=== PATIENT | female | born 1995 | race Caucasian/White ===

== ENCOUNTER 2016-12-23 20:24 | Emergency (ER) | payer OTHER ==
[~2016-12-23] VITALS: Ht 157.5 cm; Wt 58.0 kg
[~2016-12-23 20:24] MED LIST: BENZ100 PO; MEDR4PAK3 PO; [UNRECOGNIZED DRUG - SUPPLY]
[2016-12-23 20:31] VITALS: BP 106/74; PULSE 96; RESP 18; TEMP 97.9; O2SAT 98
[2016-12-23] MEDS ORDERED: BIRTH CONTROL PO (21:02)
[2016-12-23] MEDS ORDERED: EXCETAB2 PO (21:02)
[2016-12-23] MEDS ORDERED: FLUT50SP EACH NARE (21:34)
[2016-12-23] MEDS ORDERED: AUGM875T PO (21:34)
--- NOTE | 2016-12-23 21:35 | PD ---
HPI Chief Complaint: Headache Time Seen by Provider: 20:40 Travel History International Travel<30 days: No Contact w/Intl Traveler<30days: No Traveled to known affect area: No History of Present Illness HPI Patient is a 21-year-old female who presents emergency for evaluation of ear pressure and head ache. She states she has had chronic headaches for over a year. She takes Excedrin and Flexeril for that. Today she has had ear pressure. She states when she bends over she feels pressure in her head. Denies any significant nasal congestion, fevers, dyspnea, shortness of breath, nausea, vomiting. Does report a history of asthma and has a cough associated with that at night. PFSH Past Medical History Asthma: Yes Autoimmune Disease: No Developmental Delay: No Diminished Hearing: No Gastrointestinal Disorders: Yes (IBS) Genitourinary: No Musculoskeletal: No Psychiatric: No Respiratory: Yes (asthma) Immunizations Current: Yes Tetanus Vaccination: Unknown Influenza Vaccination: Yes ?: Not Past Surgical History Other Surgery: Yes (DEVIATED SEPTUM) Social History Alcohol Use: No Tobacco Use: No Substance Use: No Allergies-Medications (Allergen,Severity, Reaction): Coded Allergies: Morphine (Verified Allergy, Severe, Rash, 12/23/16) Reported Meds & Prescriptions Reported Meds & Active Scripts Active Fluticasone Nasal [place] 50 Mcg/Act Naspr 100 Mcg EACH NARE BID 50 mcg/spray Augmentin (Amoxicillin-Clavulanate) 875-125 mg Tab 875 Mg PO BID 10 Days not for use in CrCl <30 ml/min. Reported [ Control] Unknown Dose PO DAILY Excedrin Extra Strength (Efannvt-Ffcqphrvlmozj-Xrdcpkgl) 250-250-65 Mg Tab 2 Tab PO DAILY PRN Review of Systems Except as stated in HPI: all other systems reviewed are Neg Eyes: No: Blurred Vision, Visual changes HENT: Positive: Headaches, Earache Cardiovascular: No: Chest Pain or Discomfort Respiratory: No: Shortness of Breath Gastrointestinal: No: Nausea, Vomiting, Abdominal Pain Musculoskeletal: No: Myalgias Neurologic: No: Dizziness, Syncope, Focal Abnormalities, Change in Mentation, Paresthesia, Sensory Disturbance Physical Exam Narrative GENERAL: Developed, well-nourished, alert female. Resting comfortably in no acute distress. SKIN: Warm and dry. HEAD: Atraumatic. Normocephalic. EYES: Pupils equal and round. No scleral icterus. No injection or drainage. ENT: No nasal bleeding or discharge. Mucous membranes pink and moist. Bilateral external ear canals and tympanic membranes are erythema, dullness or loss of landmarks. NECK: Trachea midline. No JVD. CARDIOVASCULAR: Regular rate and rhythm. No murmur appreciated. RESPIRATORY: No accessory muscle use. Clear to auscultation. Breath sounds equal bilaterally. GASTROINTESTINAL: Abdomen soft, non-tender, nondistended. Hepatic and splenic margins not palpable. MUSCULOSKELETAL: No obvious deformities. No clubbing. No cyanosis. No edema. NEUROLOGICAL: Awake and alert. No obvious cranial nerve deficits. Motor grossly within normal limits. Normal speech. PSYCHIATRIC: Appropriate mood and affect; insight and judgment normal. Data Data Last Documented VS Vital Signs Date Time Temp Pulse Resp B/P Pulse Ox O2 Delivery O2 Flow Rate FiO2 12/23/16 20:58 Room Air 12/23/16 20:31 97.9 96 18 106/[address] [facility] Medical Decision Making Medical Screen Exam Complete: Yes Emergency Medical Condition: Yes Interpretation(s) Vital Signs Date Time Temp Pulse Resp B/P Pulse Ox O2 Delivery O2 Flow Rate FiO2 12/23/16 20:58 Room Air 12/23/16 20:31 97.9 96 18 106/74 98 Differential Diagnosis Acute sinusitis versus otitis media versus effusion versus other Narrative Course Patient is a 21-year-old female presenting to emergency for evaluation of ear pressure that started last night or this morning. Patient also has a headache, she's had headaches for the last year. She is neurologically intact. Headache is not unlike headaches she is had in the past. Patient has been seen and evaluated by her primary doctor, she had a CAT scan done 2-3 months ago per her report. Patient's primary doctor has prescribed Flexeril for the headaches as well as recommending patient takes Excedrin. At this time patient will be treated for acute sinusitis. She is encouraged to follow-up with her primary doctor in 7-10 days. She is encouraged to return to emergency department for any new or worsening symptoms. Patient is stable for discharge. Diagnosis Primary Impression: Acute sinusitis Qualified Code: J01.90 - Acute sinusitis, recurrence not specified, unspecified location Referrals: Primary Care Physician 1 week Patient Instructions: General Instructions, Sinusitis (ED) Additional Instructions: Follow-up with your primary doctor Take medications as directed Return to emergency department for any new or worsening symptoms Obtain grgm-yih-qzwjtgc Sudafed or similar nasal decongestant and use as directed Med/Other Pt SpecificInfo: Prescription(s) given Scripts Fluticasone Nasal [place] 50 Mcg/Act [id number] Mcg EACH NARE BID #1 BOTTLE Ref 0 50 mcg/spray Prov:Karyn Oscar 12/23/16 Amoxicillin-Clavulanate (Augmentin)875-125 mg [id number] Mg PO BID 10 Days Ref 0 not for use in CrCl <30 ml/min. Prov:Karyn Oscar 12/23/16 Disposition: 01 DISCHARGE HOME Condition: Stable Karyn Oscar Dec 23, 2016 21:35
[2016-12-23 21:51] VITALS: BP 105/76
== END 2016-12-23 21:53 | disposition home or self-care (01) ==
LOC: PHEFT 20:24
DX: J01.90 Acute sinusitis, unspecified (principal)
CPT/HCPCS: 99283

== ENCOUNTER → 2017-06-02 | Day surgery (SDC) | payer OTHER ==
--- NOTE | 2017-06-01 08:41 | MH ---
cc: CATALINA LUJAN DATE OF ADMISSION 06/02/2017 DATE OF 1995 CHIEF COMPLAINT Sinusitis HISTORY This is a 21-year-old female with nasal obstruction, chronic sinusitis. She has had problems with nasal obstruction. She has had a previous sinus procedure and has a significant scar band obstructing the left side of the nose at the nasal septum and inferior turbinate. She has had chronic sinus disease, recurrent infections, and pressure with nasal obstruction. Plan is for revision, endoscopic sinusotomies, septoplasty and bilateral turbinate resection. PAST MEDICAL HISTORY Shows ALLERGIES TO MORPHINE. PHYSICAL EXAMINATION A Well-developed, well-nourished female in no apparent distress. HEAD, EYES, EARS, NOSE, AND THROAT: Normocephalic, atraumatic. Extraocular motions intact. External ear canals clear. Lips, oral mucosa and oropharynx show no lesion. The nasal exam shows a left septal spur was septal and turbinate scar band with obstruction. The patient shows narrowing at the sinus ostia. The lips, oral mucosa and oropharynx show no lesions. NECK: Shows no masses. CHEST: Clear to auscultation. HEART: Regular rate. ABDOMEN: Soft. EXTREMITIES: No lesion. NEUROLOGIC: Exam is nonfocal. ASSESSMENT A 21-year-old female with chronic sinusitis to undergo revision sinusotomies, removal of scar band, septoplasty, and turbinate resection. The risks and benefits discussed with the patient. The risks include, but are not limited to those of anesthesia, bleeding, unfavorable scarring, CSF leak, meningitis, brain abscess, double vision, vision loss, blindness anosmia, septal perforation, epistaxis. The patient states she understands, and accepts the risks of the procedure. MD INESSA Groves/IGOR /7:44 AM /8:40 AM
[~2017-06-02] VITALS: Ht 157.5 cm; Wt 56.9 kg
[~2017-06-02] MED LIST changes: +ACETAMINOPHEN 1000 MG/100 ML VIAL IV ONE; +ACETAMINOPHEN/HYDROcodone 325 MG/5 MG TAB PO PRN; +ALBUAER3 INH; +APREPITANT 40 MG CAP ONE; +ASPI1TAB93 PO; -BENZ100 PO; +CHLORHEXIDINE GLUCONATE 2 % 1 PACK (2 CLOTHS) TOPICAL PRN; +DO NOT ADM ANY ANTICOAGULANT DRUGS PRN; +EPINEPHrine HCL (1:1000) 30 MG/30 ML VIAL ONE; +INSULIN HUMAN REGULAR 1,000 UNITS/10 ML VIAL SQ PRN; +LACTATED RINGER'S 1000 ML IV PRN; +LEVO-33 PO; +LIDOCAINE 1%/EPINEPHrine 1:100,000 SOLN 20 ML VIAL ONE; -MEDR4PAK3 PO; +MEPERIDINE HCL 25 MG/ML VIAL IV PRN; +METOPROLOL TARTRATE 25 MG TAB PO PRN; +MIDAZOLAM HCL 2 MG/2 ML VIAL ONE; +NEOSTIGMINE 3 MG/3 ML SYR IV ONE; +ONDANSETRON HCL 4 MG/2 ML VIAL IV PUSH ONE; +ONDANSETRON HCL 4 MG/2 ML VIAL IV PUSH PRN; +POVIDONE IODINE 5% (ANTISEPSIS KIT) 4 APPLICATIONS EACH NARE PRN; +PROPOFOL 200 MG/20 ML AMP IV ONE; +SODIUM CHLORID 0.9% 500 ML IV PRN; -[UNRECOGNIZED DRUG - SUPPLY]; +fentaNYL CITRATE 250 MCG/5 ML AMP ONE
[2017-06-02 06:23] VITALS: BP 116/75; PULSE 72; RESP 20; TEMP 98.6; O2SAT 98
[2017-06-02 06:43] LABS: BASOPHIL % 0.4 % (0.0-2.0); EOSINOPHIL # 0.6 TH/MM3 (0-0.4); EOSINOPHIL % 7.4 % (0.0-4.0); HEMATOCRIT 36.9 % (35.0-46.0); HEMO FLAGS DIFF FINAL; LYMPH % 46.3 % (9.0-44.0); LYMPHOCYTE # 3.8 TH/MM3 (1.0-4.8); MEAN CELL VOLUME 83.8 FL (80.0-100.0); MEAN CORPUSCULAR HEMOGLOBIN 27.9 PG (27.0-34.0); MEAN CORPUSCULAR HGB CONC 33.3 % (32.0-36.0); MONO % 8.8 % (0.0-8.0); NEUT % 37.1 % (16.0-70.0); PLATELET COUNT 255 TH/MM3 (150-450); RED CELL DISTRIBUTION WIDTH 14.4 % (11.6-17.2); WHITE BLOOD COUNT 8.1 TH/MM3 (4.0-11.0)
--- NOTE | 2017-06-02 07:57 | MP ---
cc: CATALINA LUJAN M.D. DATE OF SURGERY June 02, 2017 INDICATION This is a 21-year-old female with chronic sinusitis, nasal obstruction. She has had previous sinus surgery. She has recurrent sinus disease. She has a left septal scar band with obstruction and residual turbinate hypertrophy. She has failed medical therapy. She is to undergo sinusotomies, septoplasty and bilateral submucosal inferior turbinates. PREOPERATIVE DIAGNOSES Chronic sinusitis. Nasal obstruction. Scar band on the left. POSTOPERATIVE DIAGNOSES Chronic sinusitis. Nasal obstruction. Scar band on the left. PROCEDURE Septoplasty, bilateral endoscopic frontal sinusotomy, bilateral endoscopic anterior ethmoid sinusotomy, bilateral endoscopic maxillary sinusotomy, bilateral endoscopic sphenoid sinusotomy, submucosal resection of inferior turbinates. SUMMARY The patient was brought to the operating room, placed in supine position, successfully placed under general anesthesia and prepared in the usual fashion for this procedure. The nose was first topically decongested and treated with Xylocaine with epinephrine 1:100,000. The frontal recess was approached first on the right side and then the left side with a balloon sinuplasty. The frontal sinus ostia was identified and successfully opened under endoscopic guidance on the right and under endoscopic guidance on the left. The ethmoid sinus was treated anteriorly at the ethmoid bulla under endoscopic guidance, first on the right and then on the left side with an opening in the anterior chamber and completing endoscopic ethmoidectomy. The maxillary sinus ostia was identified on the left then on the right under endoscopic guidance. The areas had been scarred. Under balloon sinuplasty with the 0-degree scope, the maxillary sinus was identified and the maxillary sinus was opened bilaterally. No removal of soft tissue. The sphenoid sinus was approached anteriorly from a transnasal route first on the right, then on the left. The sphenoid sinus was identified and with the 0-degrees scope sphenoid sinusotomy was completed with dilation. The left septal band was incised and this released the septum on the left side. The septum was set more to the midline completing septoplasty. Nasal port packing was placed. The right inferior turbinate was incised inferiorly, submucous resection completed. There area was cauterized and closed. The left inferior turbinate was incised inferiorly, submucous resection was completed. The area was cauterized and closed. The patient tolerated the procedure well. She was suctioned and awakened, extubated, taken to Recovery in stable condition. MD INESSA Groves/MISTI /7:23 AM /7:41 AM
[2017-06-02 09:45] VITALS: BP 112/70; PULSE 86; RESP 16; TEMP 97.8; O2SAT 99
== END | disposition home or self-care (01) ==
LOC: HSDC 05:32
PROVIDERS: ATTEND Specialist
DX: J32.9 Chronic sinusitis, unspecified (principal); J34.89 Other specified disorders of nose and nasal sinuses; J34.3 Hypertrophy of nasal turbinates
CPT/HCPCS: 00160; 30140; 31254; 31256; 31276; 31287; 85025; J0131; J0171; J2250; J2405; J2710; J3010; J7120; J8501

== ENCOUNTER 2017-07-08 17:23 | Emergency (ER) | payer OTHER ==
[~2017-07-08] VITALS: Ht 157.5 cm; Wt 53.0 kg
[~2017-07-08 17:23] MED LIST changes: -ACETAMINOPHEN 1000 MG/100 ML VIAL IV ONE; -ACETAMINOPHEN/HYDROcodone 325 MG/5 MG TAB PO PRN; -APREPITANT 40 MG CAP ONE; -CHLORHEXIDINE GLUCONATE 2 % 1 PACK (2 CLOTHS) TOPICAL PRN; -DO NOT ADM ANY ANTICOAGULANT DRUGS PRN; -EPINEPHrine HCL (1:1000) 30 MG/30 ML VIAL ONE; -INSULIN HUMAN REGULAR 1,000 UNITS/10 ML VIAL SQ PRN; -LACTATED RINGER'S 1000 ML IV PRN; -LIDOCAINE 1%/EPINEPHrine 1:100,000 SOLN 20 ML VIAL ONE; -MEPERIDINE HCL 25 MG/ML VIAL IV PRN; -METOPROLOL TARTRATE 25 MG TAB PO PRN; -MIDAZOLAM HCL 2 MG/2 ML VIAL ONE; -NEOSTIGMINE 3 MG/3 ML SYR IV ONE; -ONDANSETRON HCL 4 MG/2 ML VIAL IV PUSH ONE; -ONDANSETRON HCL 4 MG/2 ML VIAL IV PUSH PRN; -POVIDONE IODINE 5% (ANTISEPSIS KIT) 4 APPLICATIONS EACH NARE PRN; -PROPOFOL 200 MG/20 ML AMP IV ONE; -SODIUM CHLORID 0.9% 500 ML IV PRN; -fentaNYL CITRATE 250 MCG/5 ML AMP ONE
[2017-07-08 17:32] VITALS: BP 120/62; PULSE 67; RESP 16; TEMP 98.4; O2SAT 97
[2017-07-08] MEDS ORDERED: MINO50CA PO (18:03)
[2017-07-08] MEDS ORDERED: ZOFR4TAB PO ×2 (18:14→19:10)
--- NOTE | 2017-07-08 18:14 | PD ---
HPI . Epigastric pain and nausea Chief Complaint: Abdominal Pain Time Seen by Provider: 17:51 Travel History International Travel<30 days: No Contact w/Intl Traveler<30days: No Traveled to known affect area: No History of Present Illness HPI This patient presents with chief complaint of epigastric pain associated with nausea. Onset of symptoms was 5 days ago. There has been no vomiting and no diarrhea. She states that her symptoms started 2 days after she was placed on minocycline for acne. She currently rates her pain 6/10. PFSH Past Medical History Asthma: Yes Autoimmune Disease: No Cancer: No Cardiovascular Problems: No Developmental Delay: No Diabetes: No Diminished Hearing: No Endocrine: No Gastrointestinal Disorders: Yes (IBS) Genitourinary: No Hepatitis: No Immune Disorder: No Musculoskeletal: No Psychiatric: No Reproductive: No Respiratory: Yes (asthma) Immunizations Current: Yes Thyroid Disease: No ?: Not LMP: 07/07/17 Past Surgical History Abdominal Surgery: No AICD: No Cardiac Surgery: No Ear Surgery: No Endocrine Surgery: No Eye Surgery: No Genitourinary Surgery: No Gynecologic Surgery: No Joint Replacement: No Oral Surgery: Yes (DEVIATED SEPTAL REPAIR) Pacemaker: No Thoracic Surgery: No Other Surgery: Yes (DEVIATED SEPTUM) Social History Alcohol Use: No Tobacco Use: No Substance Use: No Allergies-Medications (Allergen,Severity, Reaction): Coded Allergies: morphine (Unverified Allergy, Severe, Rash, 07/08/17) Reported Meds & Prescriptions Reported Meds & Active Scripts Active Zofran (Ondansetron HCl) 4 Mg Tab 4 Mg PO Q6HR PRN Reported Levonorgestrel-Ethinyl Estradiol 0.1-0.02 Mg Tab 1 Tab PO DAILY Excedrin Extra Strength (Gttvxzh-Ygosbwrcdbuuq-Oquujbbq) 1 Tab Tab 2 Tab PO DAILY Proair Hfa 8.5 GM Inh (Albuterol Sulfate) 90 Mcg/Act Aer 2 Puff INH Q6H PRN 108 mcg/actuation Review of Systems Except as stated in HPI: all other systems reviewed are Neg General / Constitutional: No: Fever, Chills Gastrointestinal: Positive: Nausea, Abdominal Pain, No: Vomiting, Diarrhea Physical Exam Narrative GENERAL: Smiling and in no acute distress. SKIN: Warm and dry. HEAD: Atraumatic. Normocephalic. EYES: Pupils equal and round. Sclerae are anicteric. ENT: No nasal bleeding or discharge. Mucous membranes pink and moist. NECK: Trachea midline. Neck supple. CARDIOVASCULAR: Regular rate and rhythm. Heart sounds normal. RESPIRATORY: No accessory muscle use. Lungs clear with full air movement throughout. GASTROINTESTINAL: Abdomen soft. Mild epigastric tenderness with no guarding or rebound. Nondistended. MUSCULOSKELETAL: No obvious deformities. No edema. NEUROLOGICAL: Awake and alert. No obvious cranial nerve deficits. Motor grossly within normal limits. Normal speech. PSYCHIATRIC: Appropriate mood and affect; insight and judgment normal. Data Data Last Documented VS Vital Signs Date Time Temp Pulse Resp B/P (MAP) Pulse Ox O2 Delivery O2 Flow Rate FiO2 07/08/17 17:32 98.4 67 16 120/62 (81) 97 Orders Orders Ed Urine Pregnancytest Poc (07/08/17 17:56) Ondansetron Odt (Zofran Odt) (07/08/17 18:15) Al-Mag Hy-Si 40-40-4 Mg/Ml Liq (Mag-Al P (07/08/17 18:15) Lidocaine 2% Viscous (Xylocaine 2% Visco (07/08/17 18:15) MDM Medical Decision Making Medical Screen Exam Complete: Yes Emergency Medical Condition: Yes Differential Diagnosis Differential diagnosis of abdominal pain includes but is not limited to gastritis, pancreatitis, hepatitis, gastroenteritis, gallbladder disease, constipation, urinary retention, UTI, peptic ulcer disease, diverticulitis or appendicitis Narrative Course This patient presents with epigastric pain which is associated with starting minocycline for acne. She will be instructed to stop the medication. She has been treated in the emergency department with Zofran and a GI cocktail. I will give her a prescription for Zofran. She may take an aggl-gxz-zlycmcw antacid as needed for epigastric discomfort. test is negative. Diagnosis Primary Impression: Epigastric abdominal pain Patient Instructions: Epigastric Pain (ED), General Instructions Additional Instructions: Stop minocycline. Take an bxnk-xod-vvnzjkm antacid as needed for the abdominal pain. Zofran as needed for nausea. Med/Other Pt SpecificInfo: Prescription(s) given, Med Stopped Scripts Ondansetron (Zofran) 4 Mg Tab 4 MG PO Q6HR Y for NAUSEA OR VOMITING, #10 TAB 0 Refills Prov: Lydia Alfaro MD 07/08/17 Disposition: 01 DISCHARGE HOME Condition: Stable Lydia Alfaro MD Jul 08, 2017 18:14
[2017-07-08] MEDS ORDERED: ALUMINUM/MAGNESIUM/SIMETH 30 ML CUP PO ONE (18:15)
[2017-07-08] MEDS ORDERED: ONDANSETRON ODT 4 MG TAB PO ONE (18:15)
[2017-07-08] MEDS ORDERED: LIDOCAINE VISCOUS 2% SOLN 15 ML UDC PO ONE (18:15)
== END 2017-07-08 19:27 | disposition home or self-care (01) ==
LOC: PHED 17:23
DX: R10.13 Epigastric pain (principal); J45.909 Unspecified asthma, uncomplicated; K58.9 Irritable bowel syndrome, unspecified
CPT/HCPCS: 84703; 99283